=== PATIENT | female | born 1965 | race American Indian/Alaskan Native ===

== ENCOUNTER 2017-10-31 07:36 | Emergency (ER) | payer MEDICARE ==
[2017-10-31 07:44] VITALS: BP 144/91
--- NOTE | 2017-10-31 10:28 | Emergency Department Report ---
ED General Adult HPI - General Chief complaint: Medical Clearance Stated complaint: BILATERAL INSECT BITES ON LEGS Time Seen by Provider: 10/31/17 09:46 Source: patient Mode of arrival: Wheelchair Limitations: Physical Limitation - History of Present Illness Initial comments: Patient is presenting with bilateral lower extremity insect bites. 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 Patient has small insect bites from the knees down only. Several of them now have some surrounding erythema and tenderness. Patient denies any nausea vomiting fevers chills at this time. Severity scale (0 -10): 3 Quality: burning, aching Consistency: constant - Related Data Home Medications Medication Instructions Recorded Confirmed Last Taken Fluocinonide 0.05%(Nf) [Lidex (Nf)] 09/21/15 Unknown Previous Rx's Medication Instructions Recorded Last Taken Type Fluconazole [Diflucan TAB] 150 mg PO Q72HR #3 tablet 09/21/15 Unknown Rx Nitrofurantoin [place]/M-Cryst 100 mg PO BID #14 capsule 09/21/15 Unknown Rx [Macrobid CAP] Clindamycin [Clindamycin CAP] 300 mg PO Q8H 7 Days cap 10/31/17 Unknown Rx Ibuprofen [Motrin] 600 mg PO Q8H PRN #20 tablet 10/31/17 Unknown Rx Triamcinolone 0.1% [Kenalog 0.1% 1 applic TP TID #60 g 10/31/17 Unknown Rx CREAM] Allergies Allergy/AdvReac Type Severity Reaction Status Date / Time sulfamethoxazole AdvReac Itching Verified 09/21/15 10:58 [From Bactrim] trimethoprim [From Bactrim] AdvReac Itching Verified 09/21/15 10:58 ED Review of Systems ROS: Stated complaint: BILATERAL INSECT BITES ON LEGS Other details as noted in HPI Comment: All other systems reviewed and negative ED Past Medical Hx - Past Medical History Hx Congestive Heart Failure: Yes Hx Arthritis: Yes (Rheumatoid) Hx HIV: Yes - Surgical History Past Surgical History?: No - Social History Smoking Status: Never Smoker Substance Use Type: None - Medications Home Medications: Home Medications Medication Instructions Recorded Confirmed Last Taken Type Fluconazole [Diflucan TAB] 150 mg PO Q72HR #3 tablet 09/21/15 Unknown Rx Fluocinonide 0.05%(Nf) [Lidex (Nf)] 09/21/15 Unknown History Nitrofurantoin [place]/M-Cryst 100 mg PO BID #14 capsule 09/21/15 Unknown Rx [Macrobid CAP] Clindamycin [Clindamycin CAP] 300 mg PO Q8H 7 Days cap 10/31/17 Unknown Rx Ibuprofen [Motrin] 600 mg PO Q8H PRN #20 tablet 10/31/17 Unknown Rx Triamcinolone 0.1% [Kenalog 0.1% 1 applic TP TID #60 g 10/31/17 Unknown Rx CREAM] ED Physical Exam - General Limitations: Physical Limitation General appearance: alert, in no apparent distress - Head Head exam: Present: atraumatic, normocephalic - Eye Eye exam: Present: normal appearance - ENT ENT exam: Present: mucous membranes moist - Neck Neck exam: Present: normal inspection - Respiratory Respiratory exam: Present: normal lung sounds bilaterally. Absent: respiratory distress, wheezes, rales, rhonchi - Cardiovascular Cardiovascular Exam: Present: regular rate, normal rhythm. Absent: systolic murmur, diastolic murmur, rubs, gallop - GI/Abdominal GI/Abdominal exam: Present: soft, normal bowel sounds - Extremities Exam Extremities exam: Present: normal inspection - Back Exam Back exam: Present: normal inspection - Neurological Exam Neurological exam: Present: alert, oriented X3 - Psychiatric Psychiatric exam: Present: normal affect, normal mood - Skin Skin exam: Present: warm, dry, intact, normal color, rash (patient has multiple papules on the bilateral lower extremities from the knees down excluding the foot. Several days have some surrounding erythema and mild induration. There is no evidence of any fluctuance.) ED Course Vital Signs 10/31/17 07:40 Temperature 97.7 F Pulse Rate 75 Respiratory 16 Rate Blood Pressure 144/91 O2 Sat by Pulse 98 Oximetry Critical care attestation.: If time is entered above; I have spent that time in minutes in the direct care of this critically ill patient, excluding procedure time. ED Disposition Clinical Impression: Infected insect bite Qualifiers: Encounter type: initial encounter Qualified Code(s): W57.XXXA - Bitten or stung by nonvenomous insect and other nonvenomous arthropods, initial encounter Disposition: TO HOME OR SELFCARE Is pt being admited?: No Does the pt Need Aspirin: No Condition: Stable Prescriptions: Clindamycin [Clindamycin CAP] 300 mg PO Q8H 7 Days cap Ibuprofen [Motrin] 600 mg PO Q8H PRN #20 tablet PRN Reason: Pain Triamcinolone 0.1% [Kenalog 0.1% CREAM] 1 applic TP TID #60 g Referrals: PRIMARY CARE,MD [Primary Care Provider] - 3-5 Days
== END 2017-10-31 10:35 | disposition home or self-care (01) ==
LOC: ED 07:36
DX: S80.862A Insect bite (nonvenomous), left lower leg, initial encounter (principal); S80.861A Insect bite (nonvenomous), right lower leg, initial encounter; M19.90 Unspecified osteoarthritis, unspecified site; I50.9 Heart failure, unspecified; Z88.8 Allergy status to other drugs, medicaments and biological substances; W57.XXXA Bitten or stung by nonvenomous insect and other nonvenomous arthropods, initial encounter; Y93.89 Activity, other specified; Y99.8 Other external cause status; Y92.89 Other specified places as the place of occurrence of the external cause
CPT/HCPCS: 99282